=== PATIENT | female | born 1990 | race Caucasian/White ===

== ENCOUNTER 2020-03-22 01:18 | Emergency (ER) | payer OTHER ==
[~2020-03-22] VITALS: Ht 167.6 cm; Wt 68.0 kg
--- NOTE | 2020-03-22 02:23 | RAD ---
Single view chest dated 03/22/2020: No comparison available. Clinical Indication: Shortness breath. Findings: Single upright portable exam of the chest was performed. Heart size and mediastinal contours are with in normal limits given technique. The lungs are clear without evidence of focal consolidation. No ple ural effusion or pneumothorax. Impression:: No acute radiographic abnormality. Electronically signed by: Timur Chen MD (03/22/2020 2:20 AM) [facility]
[2020-03-22] MEDS ORDERED: IPRATRPIUM/ALBUTEROL 0.5/2.5MG 3 ML NEBU. NEB ONE ×2 (02:30)
[2020-03-22] MEDS ORDERED: DEXAMETHASONE 4 MG TABLET PO ONE (02:30)
[2020-03-22 02:35] VITALS: BP 136/80
[2020-03-22] MEDS ORDERED: PRED20TA PO (02:35)
[2020-03-22] MEDS ORDERED: FLUT10.6 IH (02:35)
[2020-03-22] MEDS ORDERED: ALBU2.5V8 IH (02:35)
--- NOTE | 2020-03-22 02:35 | PHYS DOC ---
General Adult EDM: Chief Complaint: SHORTNESS OF BREATH HPI: HPI: 29-year-old female past medical history of exercise-induced asthma and Kristin's thyroiditis/hypothyroidism, presents the ED with complaints of difficulties breathing with associated dry cough for the past few weeks. Reports she was diagnosed with exercise-induced asthma 2 months ago. States her symptoms worsened around 5 PM. No relief with Mucinex, Benadryl and her inhaler twice. Influenza vaccine is not up-to-date. Last menstrual period was February 25 and she is attempting to get . Follows at the [facility]. States she woke up feeling short of breath. No known history of Covid, DVT or PEs. Is not on any control. Is not a tobacco smoker. No recent hospitalizations, surgeries, procedures, travel or immobilizations. Review of Systems: Review of Systems: Constitutional: Denies fever or chills , denies lack of taste or smell, denies any lethargy, fatigue or weakness Eyes: Denies change in visual acuity or eye discharge HENT: Denies nasal congestion or sore throat Respiratory: Denies hemoptysis or increased work of breathing Cardiovascular: Denies syncope, chest pain or edema GI: Denies abdominal pain, nausea, vomiting, bloody stools or diarrhea : Denies dysuria or hematuria or vaginal bleeding Musculoskeletal: Denies back pain or joint pain Integument: Denies rash Neurologic: Denies headache, focal weakness or sensory changes Endocrine: Denies polyuria or polydipsia Lymphatic: Denies swollen glands Psychiatric: Denies depression or anxiety Current Medications: Current Meds: Current Medications Medications (Trade) Dose Ordered Sig/Preet Start Time Stop Time Status Last Admin Dose Admin Albuterol/ Ipratropium (Duoneb) 3 ml 1X ONCE 03/22/20 02:30 03/22/20 02:31 03/22/20 02:16 3 ML Dexamethasone (Decadron) 10 mg 1X ONCE 03/22/20 02:30 03/22/20 02:31 03/22/20 02:16 10 MG Allergies: Allergies: Allergies Coded Allergies Type Severity Reaction Last Updated Verified No Known Drug Allergies 03/22/20 No Physical Exam: PE: Constitutional: Well developed, well nourished, no acute distress, non-toxic appearance. HENT: Normocephalic, atraumatic, Eyes: EOMI, conjunctiva normal, no discharge. Neck: Normal range of motion, supple, Cardiovascular: S1/2 present, regular rhythm Lungs & Thorax: Speaking in full sentences, bilateral equal chest rise, no tachypnea or increased work of breathing, diffuse moderate expiratory wheezing, dry cough in ED Abdomen: soft, no tenderness, Skin: Warm, dry, no erythema, no rash. [] Back: No tenderness, no CVA tenderness. [] Extremities: No tenderness, no cyanosis, no edema Neurologic: Alert and oriented X 3, normal motor function, normal sensory function, no focal deficits noted. [] Psychologic: Affect normal, judgement normal, mood normal. [] Current Patient Data: Labs: Laboratory Tests Test 03/22/20 01:58 POC Urine HCG, Qualitative hcg negative (Negative) EKG: EKG: [] Radiology/Procedures: Radiology/Procedures: IMAGING REPORT Signed PATIENT: PRINCESS BROOKS ACCOUNT: [id number] : 1990 LOCATION: ER AGE: 29 SEX: F EXAM STATUS: REG ER ORD. PHYSICIAN: NINO PEREZ DO REASON: soa PROCEDURE: CHEST AP ONLY Single view chest dated 03/22/2020: No comparison available. Clinical Indication: Shortness breath. Findings: Single upright portable exam of the chest was performed. Heart size and mediastinal contours are within normal limits given technique. The lungs are clear without evidence of focal consolidation. No pleural effusion or pneumothorax. Impression:: No acute radiographic abnormality. Electronically signed by: Timur Chen MD (03/22/2020 2:20 AM) [facility] [place] DICTATED AND SIGNED BY: TIMUR CHEN MD DATE: 03/22/20 0220 CC: PCP,UNKNOWN; NINO PEREZ DO ~MTH0 0 Impressions: 0 criteria PERC rule No need for further workup, as <2% chance of PE. If no criteria are positive and clinicians pre-test probability is <15%, PERC Rule criteria are satisfied. 0 points Low risk group for DVT. Unlikely according to [facility] DVT studies. Heart Score: Risk Factors: Risk Factors: DM, Current or recent (<one month) smoker, HTN, HLP, family history of CAD, obesity. Risk Scores: Score 0 - 3: 2.5% MACE over next 6 weeks - Discharge Home Score 4 - 6: 20.3% MACE over next 6 weeks - Admit for Clinical Observation Score 7 - 10: 72.7% MACE over next 6 weeks - Early Invasive Strategies Course & Med Decision Making: Course & Med Decision Making Pertinent Labs and Imaging studies reviewed. (See chart for details) Concern for asthma, mild exacerbation. Was treated with duo nebs and dexamethasone in the ED. Chest x-ray with no infiltrate. Will DC home with steroids for 4 days, albuterol inhaler and a steroid inhaler for 1 month. I offered Covid and influenza testing, patient declined. Patient reports she has no other symptoms of Covid. Will discharge home with strict ED return precautions were given for increased work of breathing, chest pain, hemoptysis or leg swelling. Encouraged urgent outpatient follow-up with PMD and pulmonology. Life-threatening processes were considered but are low suspicion at this time, given history, physical exam and ED workup. Pt was educated on all prescription medications and adverse effects. All patient's questions were answered and pt was stable at time of discharge. Life/limb-threatening differential includes but is not limited to, foreign body, infection/sepsis, congestive heart failure or pulmonary edema, lung cancer intrathoracic mass, bronchoconstriction, asthma/COPD/lung disease exacerbation, pneumothorax or hemothorax, pulmonary emboli, autoimmune/neurologic disease or toxidrome. I spoken with the patient and her caregivers. I explained the patient's co ndition, diagnoses and treatment plan based on the information available to me at this time. I have answered the patient and her caregiver's questions and addressed any concerns. The patient and her caregivers have a good understanding of patient's diagnosis, condition and treatment plan as can be expected at this point. Vital signs have been stable. Patient's condition is stable and appropriate for discharge from the emergency department. Patient will pursue further outpatient evaluation with primary care physician or other designated or consulting physician as outlined in the discharge instructions. The patient and/or caregivers are agreeable to this plan of care and follow-up instructions have been explained in detail. The patient and/or caregivers have received these instructions in written form and have expressed an understanding of the discharge instructions. The patient and/or caregivers are aware that any significant change of condition or worsening of symptoms should prompt immediate return to this or the closest emergency department or call to [facility] Disclaimer: Joanna Disclaimer: This electronic medical record was generated, in whole or in part, using a voice recognition dictation system. Departure Departure: Impression: Primary Impression: Mild asthma exacerbation Disposition: 01 DC HOME SELF CARE/HOMELESS Condition: STABLE Referrals: PCP,UNKNOWN (PCP) FOLLOW UP WITH FAMILY MEDICINE: Complete [facility], [facility] [address] [facility] [address] [place] [address], Patient Instructions: Asthma, Adult, Cough, Adult Additional Instructions: FOLLOW UP WITH: [facility] Address: [address] [place] [address] EMERGENCY DEPARTMENT GENERAL DISCHARGE INSTRUCTIONS Thank you for coming to [facility] (ED) today and trusting us with you care. We trust that you had a positivie experience in our Emergency Department. If you wish to speak to the department management, you may call the director at [phone]. YOUR FOLLOW UP INSTRUCTIONS ARE FOLLOWS: 1. Do you have a private Doctor? If you do not have a private doctor, please ask for a resource list of physicians or clinics that may be able to assist you with follow up care. 2. The Emergency Physician has interpreted your x-rays. The X-Ray specialist will also review them. If there is a change in the findings, you will be notified in 48 hours when at all possible. 3. A lab test or culture has been done, your results will be reviewed and you will be notified if you need a change in treatment. ADDITIONAL INSTRUCTIONS AND INFORMATION: 1. Your care today has been supervised by a physician who is specially trained in emergency care. Many problems require more than one evaluation for a complete diagnosis and treatment. We recommend that you schedule your follow up appointment as recomme nded to ensure complete treatment of you illness or injury. If you are unable to obtain follow up care and continue to have a problem, or if your condition worsens, we recommend that you return to the ED. 2. We are not able to safely determine your condition over the phone nor are we able to give sound medical advice over the phone. For these safety reasons, if you call for medical advice we will ask you to come to the ED for further evaluation. 3. If you have any questions regarding these discharge instructions please call the ED at [phone]. SAFETY INFORMATION: In the interest of safety, wellness, and injury prevention; we encourage you to wear your sealbelt, if you smoke; quite smoking, and we encourage family to use a protective helmet for bicycling and other sporting events that present an increased risk for head injury. IF YOUR SYMPTOMS WORSEN OR NEW SYMPTOMS DEVELOP, OR YOU HAVE CONCERNS ABOUT YOUR CONDITION; OR IF YOUR CONDITION WORSENS WHILE YOU ARE WAITING FOR YOUR FOLLOW UP APPOINTMENT; EITHER CONTACT YOUR PRIMARY CARE DOCTOR, THE PHYSICIAN WHOSE NAME AND NUMBER YOU WERE GIVEN, OR RETURN TO THE ED IMMEDIATELY. Scripts Fluticasone Propionate (FLOVENT 44MCG HFA) 10.6 Gm Aer.w.adap 2 PUFF IH BID for wheezing for 30 Days, #1 INHALER 2 Refills Prov: NINO PEREZ DO 03/22/20 Albuterol Sulfate (VENTOLIN HFA INHALER) 18 Gm Hfa.aer.ad 1 PUFF IH PRN Q4HRS PRN for FOR ASTHMA, #1 INHALER 0 Refills Prov: NINO PEREZ DO 03/22/20 Prednisone (PREDNISONE) 20 Mg Tablet 2 TAB PO DAILY for wheezing for 4 Days, #8 TAB Prov: NINO PEREZ DO 03/22/20 NINO PEREZ DO Mar 22, 2020 02:35
== END 2020-03-22 02:40 | disposition home or self-care (01) ==
LOC: ER 01:18
DX: J45.901 Unspecified asthma with (acute) exacerbation (principal); R05 Cough
CPT/HCPCS: 71045; 81025; 94640; 99284; J8540